=== PATIENT | male | born 1945 | race Caucasian/White ===

== ENCOUNTER 2016-07-14 09:08 | Outpatient (CLI) | payer MEDICARE | END 2016-07-14 09:09 | disposition home or self-care (01) | DX: E78.00 Pure hypercholesterolemia, unspecified (principal); I95.9 Hypotension, unspecified ==

== ENCOUNTER 2016-07-18 08:00 | Outpatient (CLI) | payer MEDICARE | END 2016-07-18 08:01 | disposition home or self-care (01) | DX: I95.9 Hypotension, unspecified (principal) ==

== ENCOUNTER 2016-08-17 13:46 | Outpatient (CLI) | payer MEDICARE | END 2016-08-17 13:47 | disposition home or self-care (01) | DX: R03.0 Elevated blood-pressure reading, without diagnosis of hypertension (principal) ==

== ENCOUNTER → 2016-11-23 | Outpatient (CLI) | payer MEDICARE ==
[2016-11-23 17:58] LABS: CALCIUM 8.9 mg/dL (8.5-10.3); CREATININE 1.2 mg/dL (0.6-1.2); POTASSIUM 4.3 mmol/L (3.5-5.0)
== END ==
LOC: LAB.F 08:00
PROVIDERS: ATTEND Internal Medicine
DX: G90.9 Disorder of the autonomic nervous system, unspecified (principal)
CPT/HCPCS: 36415; 80048

== ENCOUNTER 2016-12-01 10:31 | Outpatient (CLI) | payer MEDICARE ==
[2016-12-01 18:35] LABS: BASOPHILS % (AUTO) 0.5 %; EOSINOPHILS # (AUTO) 0.1 10^3/uL (0.0-0.7); HGB - HEMOGLOBIN 11.5 g/dL (14.0-18.0); LYMPHOCYTES # (AUTO) 0.6 10^3/uL (1.5-3.5); MEAN CORPUSCULAR HEMOGLOBIN 33.2 pg (27.0-31.0); MEAN CORPUSCULAR HGB CONC 34.9 g/dL (32.0-36.0); MEAN CORPUSCULAR VOLUME 95.2 fL (80.0-94.0); MEAN PLATELET VOLUME 10.2 fL (7.4-11.4); MONOCYTES # (AUTO) 0.4 10^3/uL (0.0-1.0); MONOCYTES % (AUTO) 6.6 %; NEUTROPHILS # (AUTO) 5.1 10^3/uL (1.5-6.6); NEUTROPHILS % (AUTO) 81.9 %; NUCLEATED RED BLOOD CELLS AUTO 0.1 /100WBC; RED BLOOD COUNT 3.47 10^6/uL (4.70-6.10); RED CELL DISTRIBUTION WIDTH 17.4 % (12.0-15.0); UNCORRECTED WHITE BLOOD COUNT 6.2 x10^3/uL; WHITE BLOOD COUNT 6.2 x10^3/uL (4.8-10.8)
== END 2016-12-01 10:32 | disposition home or self-care (01) ==
LOC: LAB.F 10:31
PROVIDERS: ATTEND Internal Medicine
DX: M10.071 Idiopathic gout, right ankle and foot (principal)
CPT/HCPCS: 36415; 84550; 85025

== ENCOUNTER 2016-12-20 15:01 | Outpatient (CLI) | payer MEDICARE ==
[2016-12-20 15:51] LABS: ALBUMIN/GLOBULIN RATIO 1.5 (1.0-2.2); BILIRUBIN,TOTAL 0.7 mg/dL (0.2-1.0); CALCIUM 8.3 mg/dL (8.5-10.3); CREATININE 1.1 mg/dL (0.6-1.2); POTASSIUM 4.3 mmol/L (3.5-5.0); TOTAL PROTEIN 6.1 g/dL (6.7-8.2)
== END 2016-12-20 15:02 | disposition home or self-care (01) ==
LOC: LAB 15:01
PROVIDERS: ATTEND Physician Assistant
DX: C23 Malignant neoplasm of gallbladder (principal)
CPT/HCPCS: 36415; 80053

== ENCOUNTER 2016-12-30 14:14 | Outpatient (CLI) | payer MEDICARE | END 2016-12-30 14:15 | disposition home or self-care (01) | LOC: LAB 14:14 | PROVIDERS: ATTEND Internal Medicine | DX: I95.9 Hypotension, unspecified (principal); G90.9 Disorder of the autonomic nervous system, unspecified ==

== ENCOUNTER 2017-01-11 07:44 | Outpatient (CLI) | payer MEDICARE ==
[2017-01-11] MEDS ORDERED: IOPAMIDOL-300 100 ML VIAL ONE (08:06)
[2017-01-11] MEDS ORDERED: IOPAMIDOL-300 50 ML VIAL ONE (08:06)
[2017-01-11] MEDS ORDERED: IOPAMIDOL-300 50 ML VIAL PO ONE (09:30)
[2017-01-11] MEDS ORDERED: IOPAMIDOL-300 100 ML VIAL IVP ONE (09:31)
--- NOTE | 2017-01-11 11:37 | CT Report ---
CT CHEST WITH CONTRAST: 01/11/2017 CLINICAL INDICATION: Gallbladder carcinoma. TECHNIQUE: Axial CT images of the chest were obtained with 100 mL Isovue-300 intravenously. In accordance with CT protocol optimization, one or more of the following dose reduction techniques were utilized for this exam: automated exposure control, adjustment of mA and/or KV based on patient size, or use of iterative reconstructive technique. COMPARISON: 08/25/2015 FINDINGS: The heart and great vessels demonstrate atherosclerotic calcifications. No hilar or mediastinal lymphadenopathy is present. No pulmonary nodule or mass lesion is appreciated. No effusion or pneumothorax is present. There are multiple small filling defects in segmental and subsegmental right lower lobe pulmonary arteries, compatible with pulmonary emboli. Osseous structures demonstrate degenerative changes. IMPRESSION: NO EVIDENCE OF METASTATIC DISEASE. INCIDENTAL FINDING OF RIGHT LOWER LOBE PULMONARY EMBOLI. CRITICAL RESULT: RESULTS CALLED TO DR. MOTA ON 01/11/2017 AT 11:20 P.M. JOB #: [id number] EXT JOB #: [id number] [facility]
--- NOTE | 2017-01-11 11:40 | CT Report ---
CT ABDOMEN AND PELVIS WITH CONTRAST: 01/11/2017 CLINICAL INDICATION: Followup gallbladder carcinoma. COMPARISON: 08/05/2013 TECHNIQUE: Axial CT images of the abdomen and pelvis were obtained with 100 mL Isovue-300 intravenou sly as well as oral contrast. In accordance with CT protocol optimization, one or more of the following dose reduction techniques w ere utilized for this exam: automated exposure control, adjustment of mA and/or KV based on patient size, or use of iterative reconstructive technique. Please also refer to chest CT of the same day for further findings. FINDINGS: Abdomen: The patient is status post cholecystectomy. Pneumobilia is present. The liver appears oth erwise unremarkable. The spleen, pancreas, and adrenal glands are unremarkable. The kidneys demonst rate multiple bilateral calculi, without significant interval change. No hydronephrosis or hydrouret er is seen. No bowel dilatation, free gas, or free fluid is present. No abdominal adenopathy is see n. Pelvis: Diverticulosis is present, without CT evidence of diverticulitis. No pelvic adenopathy or f ree fluid is present. Vascular phleboliths are present. Osseous structures demonstrate degenerative changes. IMPRESSION: POSTOPERATIVE CHANGES OF CHOLECYSTECTOMY, WITH PNEUMOBILIA. DIVERTICULOSIS, WITHOUT CT EVIDENCE OF DIVERTICULITIS. NO EVIDENCE OF METASTATIC DISEASE. JOB #: [id number] EXT JOB #:[id number]
== END 2017-01-11 07:45 | disposition home or self-care (01) ==
LOC: DI 07:44
PROVIDERS: ATTEND Internal Medicine
DX: C23 Malignant neoplasm of gallbladder (principal); K57.90 Diverticulosis of intestine, part unspecified, without perforation or abscess without bleeding; Z90.49 Acquired absence of other specified parts of digestive tract
CPT/HCPCS: 71260; 74177; Q9967

== ENCOUNTER 2017-01-11 11:47 | Inpatient (IN) | payer MEDICARE ==
[2017-01-11 12:27] LABS: BASOPHILS % (AUTO) 0.7 %; EOSINOPHILS % (AUTO) 0.9 %; HCT - HEMATOCRIT 28.1 % (42.0-52.0); HGB - HEMOGLOBIN 10.2 g/dL (14.0-18.0); LYMPHOCYTES # (AUTO) 0.8 10^3/uL (1.5-3.5); LYMPHOCYTES % (AUTO) 19.8 %; MEAN CORPUSCULAR HGB CONC 36.4 g/dL (32.0-36.0); MEAN CORPUSCULAR VOLUME 101.8 fL (80.0-94.0); MEAN PLATELET VOLUME 9.4 fL (7.4-11.4); MONOCYTES # (AUTO) 0.3 10^3/uL (0.0-1.0); MONOCYTES % (AUTO) 8.2 %; NEUTROPHILS # (AUTO) 2.8 10^3/uL (1.5-6.6); NEUTROPHILS % (AUTO) 70.4 %; NUCLEATED RED BLOOD CELLS AUTO 0.1 /100WBC; RED BLOOD COUNT 2.76 10^6/uL (4.70-6.10)
[2017-01-11 12:35] LABS: INR 1.1 (0.8-1.2); PT - PROTHROMBIN TIME 12.7 secs (9.9-12.6)
[2017-01-11 12:40] LABS: ALBUMIN/GLOBULIN RATIO 1.7 (1.0-2.2); BILIRUBIN,TOTAL 1.1 mg/dL (0.2-1.0); CALCIUM 8.7 mg/dL (8.5-10.3); CREATININE 1.2 mg/dL (0.6-1.2); POTASSIUM 4.1 mmol/L (3.5-5.0); TOTAL PROTEIN 5.9 g/dL (6.7-8.2)
[2017-01-11] MEDS ORDERED: ENOXAPARIN 80 MG/0.8 ML SYRINGE SUBQ STA (12:40)
[2017-01-11 12:42] LABS: PARTIAL THROMBOPLASTIN TIME 26.4 secs (24.9-33.3)
--- NOTE | 2017-01-11 12:46 | ED Physician Documentation ---
History of Present Illness - Stated complaint Stated Complaint: SOA - Chief complaint Chief Complaint: Resp - History obtained from History obtained from: Patient - Additonal information Additional information: 71 yo male under tx for gallbladder CA. Had surveillance scans today showing RLL PE. No acute dyspnea, "I've been short of breath for 10 years." Has been dealing with low blood pressures over the last few months. No H/O ulcers or bleeding issues. Review of Systems Ten Systems: 10 systems reviewed and negative Constitutional: reports: Reviewed and negative Ears: reports: Reviewed and negative Nose: reports: Reviewed and negative Throat: reports: Reviewed and negative Cardiac: reports: Reviewed and negative PD PAST MEDICAL HISTORY - Past Medical History Cardiovascular: High cholesterol, Coronary artery disease, Angina Respiratory: Shortness of breath Endocrine/Autoimmune: HyPOthyroidism GI: Cholelithiasis, Other : Kidney stones HEENT: None Psych: None Musculoskeletal: Gout Derm: None Other Past Medical History: Cancer to the gall bladder. - Past Surgical History Past Surgical History: Yes General: Appendectomy Cardiovascular: Coronary stent HEENT: Cataracts, Tonsil/Adenoidectomy - Present Medications Home Medications: Ambulatory Orders Medication Instructions Recorded Confirmed Lansoprazole 30 mg PO DAILY 08/05/13 08/25/16 Hyalur AC/Chond Sul/Colg II/Aa 100 mg PO BID 05/08/14 08/25/16 [Hyaluronic Acid 40 mg Capsule] Aspirin Chewable [St Patel 81 mg PO DAILY tablet 03/25/16 08/25/16 Aspirin] Levothyroxine [Synthroid] 25 mcg PO QDAC tablet 03/25/16 08/25/16 Atorvastatin [Lipitor] 80 mg PO DAILY 08/25/16 08/25/16 Cholecalciferol (Vitamin D3) 1 tab ORAL DAILY 08/25/16 08/25/16 [Vitamin D3] - Allergies Allergies/Adverse Reactions: Allergies Allergy/AdvReac Type Severity Reaction Status Date / Time No Known Drug Allergies Allergy Verified 01/11/17 11:54 - Social History Does the pt smoke?: No Smoking Status: Never smoker Does the pt drink ETOH?: Yes Does the pt have substance abuse?: No - Family History Family history: reports: Non contributory - Immunizations Immunizations are current?: Yes - POLST Patient has POLST: No PD ED PE NORMAL - Vitals Vital signs reviewed: Yes - General General: Alert and oriented X 3, No acute distress - HEENT HEENT: PERRL, EOMI - Neck Neck: Supple, no meningeal sign, No bony TTP - Cardiac Cardiac: RRR, No murmur - Respiratory Respiratory: No respiratory distress, Clear bilaterally - Abdomen Abdomen: Normal bowel sounds, Soft, Non tender - Back Back: No CVA TTP, No spinal TTP - Derm Derm: Normal color, Warm and dry - Extremities Extremities: No deformity, No edema, No calf tenderness / cord - Neuro Neuro: Alert and oriented X 3, Normal speech - Psych Psych: Normal mood, Normal affect Results - Vitals Vitals: Vital Signs - 24 hr 01/11/17 01/11/17 11:51 13:05 Temperature 36.5 C 36.9 C Heart Rate 59 L 61 Respiratory 20 16 Rate Blood Pressure 102/58 L 159/81 H O2 Saturation 100 100 Oxygen O2 Source Room air - Labs Labs: Laboratory Tests 01/11/17 01/11/17 01/11/17 12:21 12:21 12:21 WBC 4.0 L RBC 2.76 L Hgb 10.2 L Hct 28.1 L MCV 101.8 H MCH 37.0 H MCHC 36.4 H RDW 20.0 H Plt Count 149 MPV 9.4 Neut # 2.8 Lymph # 0.8 L [place] # 0.3 Eos # 0.0 Baso # 0.0 Absolute Nucleated RBC 0.00 Nucleated RBC % 0.1 PT 12.7 H INR 1.1 APTT 26.4 Sodium 137 Potassium 4.1 Chloride 107 Carbon Dioxide 23 Anion Gap 7.0 BUN 24 H Creatinine 1.2 Estimated GFR (MDRD) 60 L Glucose 149 H Calcium 8.7 Total Bilirubin 1.1 H AST 29 ALT 21 Alkaline Phosphatase 42 Troponin I Total Protein 5.9 L Albumin 3.7 Globulin 2.2 Albumin/Globulin Ratio 1.7 Lipase 28 01/11/17 12:21 WBC RBC Hgb Hct MCV MCH MCHC RDW Plt Count MPV Neut # Lymph # [place] # Eos # Baso # Absolute Nucleated RBC Nucleated RBC % PT INR APTT Sodium Potassium Chloride Carbon Dioxide Anion Gap BUN Creatinine Estimated GFR (MDRD) Glucose Calcium Total Bilirubin AST ALT Alkaline Phosphatase Troponin I < 0.04 Total Protein Albumin Globulin Albumin/Globulin Ratio Lipase PD MEDICAL DECISION MAKING - ED course ED course: 71-year-old presents with imaging done as an outpatient showing right lower lobe pulmonary embolism. He has active cancer and his PE severity index score is 110 which advises admission. Spoke with Dr. Woody for admission at 1:10 PM. Departure - Departure Disposition: ED Place in Observation Clinical Impression: Pulmonary embolism Qualifiers: Pulmonary embolism type: other Chronicity: acute Acute cor pulmonale presence: without acute cor pulmonale Qualified Code(s): I26.99 - Other pulmonary embolism without acute cor pulmonale Condition: Stable
[2017-01-11] MEDS ORDERED: ENOXAPARIN 80 MG/0.8 ML SYRINGE SUBQ ONE (12:47)
[2017-01-11] MEDS ORDERED: ONDANSETRON 4 MG/2 ML VIAL IVP PRN (14:06)
[2017-01-11] MEDS ORDERED: ZOLPIDEM 5 MG TABLET PO PRN (14:06)
[2017-01-11] MEDS ORDERED: ACETAMINOPHEN 325 MG TABLET PO PRN (14:06)
[2017-01-11] MEDS ORDERED: SODIUM CHLORIDE FLUSH 0.9% 10 ML SYRINGE IVP PRN (14:06)
--- NOTE | 2017-01-11 14:15 | HISTORY & PHYSICAL EXAMINATION ---
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 Patient report he had surveillance CT scans with contrast today, which found he had PE at his RLL. Patient report he has been "shortness of breathing for over 10 years." Patient denies acute dyspnea, chest pain, anxiety, cough. Patient denies any acute symptoms. Patient report he is current on chemotherapy for gallbladder cancer, two week on one week off. He report he had twice surgery to remove his gallbladder cancer on last year March and this year July. 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 His SBP can be down to 80 when he stand up and with some dizziness. CT of abdomen reveals unremarkable. Lab test reveal slight lower number WBC at 4 , HGB 10.2, HCT 28.1, BUN 24, creatinine 1.2. pt is currently on chemotherapy. Patient's vital is temperature 36.5, HR 58, BP 162/77, HR 56, 100% SO2 on room air, RR 16. History - Past Medical History Cardiovascular: reports: High cholesterol, Coronary artery disease, Angina Respiratory: reports: Shortness of breath Endocrine/Autoimmune: reports: HyPOthyroidism GI: reports: Cholelithiasis, Other : reports: Kidney stones HEENT: reports: None Psych: reports: None Musculoskeletal: reports: Gout Derm: reports: None MRSA Hx?: No Other Past Medical History: Cancer to the gall bladder. - Past Surgical History General: reports: Appendectomy Cardiovascular: reports: Coronary stent HEENT: reports: Cataracts, Tonsil/Adenoidectomy - Family & Social History Family History: Mother: (Mom from CLL, father from Pneumonia) , Father: Family History Comment/Other: patient [place] . he had 2 children, all are healthy. 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 Living arrangement: At home Living Situation: With spouse/s.o. - Substance History Use: Uses substance without health or social issues: NONE Abuse: Recurrent use of substance despite neg consequences: NONE Dependence: Experiences withdrawal or developed tolerances: NONE - POLST Patient has POLST: No POLST Status: Full Code Meds/Allgy - Home Medications Home Medications: Ambulatory Orders Medication Instructions Recorded Confirmed Lansoprazole 30 mg PO DAILY 08/05/13 01/11/17 Aspirin Chewable [St Patel 81 mg PO DAILY tablet 03/25/16 01/11/17 Aspirin] Levothyroxine [Synthroid] 25 mcg PO QDAC tablet 03/25/16 01/11/17 Atorvastatin [Lipitor] 80 mg PO DAILY 08/25/16 01/11/17 Cholecalciferol (Vitamin D3) 1,000 tab ORAL DAILY 08/25/16 01/11/17 [Vitamin D3] Calcium Carbonate [Tums (Calcium 500 mg PO DAILY 01/11/17 01/11/17 Carbonate 500mg)] Capecitabine [Capecitabine] 1,500 mg PO 0800,1700 01/11/17 01/11/17 Fludrocortisone [Florinef] 0.2 mg PO BID 01/11/17 01/11/17 - Allergies Allergies/Adverse Reactions: Allergies Allergy/AdvReac Type Severity Reaction Status Date / Time No Known Drug Allergies Allergy Verified 01/11/17 11:54 Review of Systems - Constitutional Constitutional: denies: Fatigue, Fever, Chills, Malaise, Weakness, Poor appetite , Diaphoresis, Night sweats, Weight gain, Weight loss - Eyes Eyes: denies: Pain, Irritation, Blurred vision, Spots in vision, Field loss, Vision loss - Ears, Nose & Throat Ears, Nose & Throat: denies: Ear pain, Hearing loss, Hearing aids, Tinnitus, Vertigo, Nasal pain, Nasal discharge, Nosebleeds, Nasal congestion, Sore throat , Mouth lesions, Bleeding gums - Cardiovascular Cariovascular: denies: Irregular heart rate, Palpitations, Chest pain, Edema, Lightheadedness, Syncope, Exertional dyspnea - Respiratory Respiratory: denies: Cough, Sputum production, Wheezing, Snoring, Hemoptysis, Orthopnea, Apnea - Gastrointestinal Gastrointestinal: denies: Abdominal pain, Abdominal distention, Constipation, Diarrhea, Change in bowel habits, Rectal bleeding, Black stools, Bloody stools, Nausea, Vomiting, Coffee grounds emesis, Poor appetite - Genitourinary Genitourinary: denies: Dysuria, Frequency, Urgency, Hematuria, Incontinence, Flank pain, Nocturia - Musculoskeletal Musculoskeletal: denies: Muscle pain, Back pain, Muscle aches, Stiffness, Limited range of motion, Muscle weakness, Gout, Joint pain - Integumentary Integumentary: denies: Rash, Pruritis, Lesions, Dryness, Acne, Pigment changes - Neurological Neurological: denies: General weakness, Focal weakness, Headache, Dizziness, Numbness, Memory problems, Abnormal gait, Seizures, Incoordination, Slurred speech - Psychiatric Psychiatric: denies: Depression, Anxiety, Suicidal, Delusions, Hallucinations, Homicidal - Endocrine Endocrine: denies: Polyuria, Polydypsia, Polyphagia, Intolerance to cold - Hematologic/Lymphatic Hematologic/Lymphatic: denies: Anemia, Bruising, Petechiae, Blood clots, Lymphadenopathy, Bleeding tendencies, Recurrent infections Exam - Vital Signs Reviewed Vital Signs: Yes Vital Signs: Vital Signs x48h Temp Pulse Resp BP Pulse Ox 01/11/17 13:05 36.9 C 61 16 159/81 H 100 01/11/17 11:51 36.5 C 59 L 20 102/58 L 100 - Physical Exam General Appearance: positive: No acute distress, Alert. negative: Lethargic Eyes Bilateral: positive: Normal inspection, PERRL, No lid inflammation, Conjunctivae nml, No scleral icterus ENT: positive: ENT inspection nml, Pharynx nml, No signs of dehydration. negative: Purulent nasal drainage, Pharyngeal erythema, Oral lesions Neck: positive: Nml inspection, Thyroid nml, No JVD, Trachea midline. negative : Thyromegaly, Lymphadenopathy (R), Lymphadenopathy (L), Stiff neck, Swelling/ bruising, Tracheal deviation Respiratory: positive: Chest non-tender, No respiratory distress, Other (left lung sound is normal, the sound of right lower lung is diminished). negative: Wheezes, Rales, Rhonchi Cardiovascular: positive: Regular rate & rhythm, No murmur, No gallop. negative : Irregularly irregular, Extrasystoles, Tachycardia, Bradycardia, Systolic murmur, Diastolic murmur Peripheral Pulses: positive: 2+ Abdomen: positive: Non-tender, No organomegaly, Nml bowel sounds, No distention. negative: Tenderness, Guarding, Rebound Back: positive: Nml inspection. negative: CVA tenderness (R), CVA tenderness (L ) Skin: positive: Color nml, No rash, Warm, Dry. negative: Cyanosis, Diaphoresis , Skin rash Extremities: positive: Non-tender, Full ROM, Nml appearance. negative: Pedal edema, Calf tenderness, Berny's sign/cords Neurologic/Psychiatric: positive: Oriented x3, Motor nml, Sensation nml, Mood/ affect nml. negative: Sensory loss, Facial droop, Slurred/abnml speech, Depressed mood/affect Conclusion/Plan - Problem List (1) Pulmonary embolism Conclusion/Plan: CT with contrast, reveals pt had PE at RLL, with decreased lung sound at RLL compared with left lung at physical examination. Pt is current on chemotherapy for his gallbladder caner, the risk of blood clots is increased. Plan: treat with Lovenox 1 mg/kg Bid now, may switch to Xarelto or Coumadin, will discuss at tomorrow meeting. daily check PT/INR monitor tele, vital Qualifiers: Pulmonary embolism type: other Chronicity: acute Acute cor pulmonale presence: without acute cor pulmonale Qualified Code(s): I26.99 - Other pulmonary embolism without acute cor pulmonale (2) Gallbladder cancer, carcinoma Conclusion/Plan: pt is current on chemotherapy, will resume home meds after pharmacy reconciliation of the meds (3) Hypotension Conclusion/Plan: pt with history of hypotension, Now pt has slight elevated BP, will check orthostatic BP. will hold pt's home meds, Fludrocortisone (4) Hypothyroid Conclusion/Plan: stable, resume home meds will check TSH (5) Hyperlipidemia Conclusion/Plan: stable, will resume home meds, Atorvastatin (6) Hx of coronary artery disease Conclusion/Plan: pt denies chest pain, SOB, any other cardiac distress. will resume pt's home meds pt will be on tele, vital monitor (7) DVT prophylaxis Conclusion/Plan: SCD now, pt is already on Lovenox BID for PE - Lab Results Fish Bones: 01/12/17 05:18 01/12/17 05:18 Issues/Core Measures - Anticipated LOS Anticipated Stay Length: 2 or more midnights (acute PE may request two or more midnight)
[2017-01-11] MEDS ORDERED: cloNIDine 0.1 MG TABLET PO PRN (16:04)
[2017-01-11] MEDS: CAPECITABINE 500 MG PO SCH (18:09)
[2017-01-11] MEDS ORDERED: ATORVASTATIN 40 MG TABLET PO SCH (21:00)
[2017-01-11] MEDS: ENOXAPARIN 80 MG/0.8 ML SYRINGE SUBQ SCH (21:43)
[2017-01-11] MEDS: FAMOTIDINE 20 MG TABLET PO SCH (21:43)
[2017-01-11] MEDS: SODIUM CHLORIDE FLUSH 0.9% 10 ML SYRINGE IVP SCH (21:44)
[2017-01-12] MEDS: SODIUM CHLORIDE FLUSH 0.9% 10 ML SYRINGE IVP SCH (06:04)
[2017-01-12 06:16] LABS: ALBUMIN/GLOBULIN RATIO 1.8 (1.0-2.2); BILIRUBIN,TOTAL 1.1 mg/dL (0.2-1.0); CALCIUM 8.7 mg/dL (8.5-10.3); CREATININE 1.1 mg/dL (0.6-1.2); POTASSIUM 4.1 mmol/L (3.5-5.0); TOTAL PROTEIN 5.8 g/dL (6.7-8.2)
[2017-01-12 06:23] LABS: BASOPHILS % (AUTO) 0.6 %; EOSINOPHILS # (AUTO) 0.1 10^3/uL (0.0-0.7); EOSINOPHILS % (AUTO) 1.3 %; HCT - HEMATOCRIT 30.4 % (42.0-52.0); HGB - HEMOGLOBIN 10.8 g/dL (14.0-18.0); LYMPHOCYTES # (AUTO) 1.1 10^3/uL (1.5-3.5); LYMPHOCYTES % (AUTO) 23.4 %; MEAN CORPUSCULAR HEMOGLOBIN 36.4 pg (27.0-31.0); MEAN CORPUSCULAR HGB CONC 35.5 g/dL (32.0-36.0); MEAN CORPUSCULAR VOLUME 102.6 fL (80.0-94.0); MEAN PLATELET VOLUME 10.1 fL (7.4-11.4); MONOCYTES # (AUTO) 0.6 10^3/uL (0.0-1.0); NEUTROPHILS # (AUTO) 2.9 10^3/uL (1.5-6.6); NEUTROPHILS % (AUTO) 62.7 %; RED BLOOD COUNT 2.96 10^6/uL (4.70-6.10); RED CELL DISTRIBUTION WIDTH 19.1 % (12.0-15.0); UNCORRECTED WHITE BLOOD COUNT 4.6 x10^3/uL; WHITE BLOOD COUNT 4.6 x10^3/uL (4.8-10.8)
[2017-01-12 06:46] LABS: INR 1.2 (0.8-1.2); PT - PROTHROMBIN TIME 13.2 secs (9.9-12.6)
[2017-01-12] MEDS ORDERED: LEVOTHYROXINE 25 MCG TABLET PO SCH (07:00)
[2017-01-12] MEDS ORDERED: ASPIRIN CHEW 81 MG TABLET PO SCH (09:00)
[2017-01-12] MEDS ORDERED: POLYETHYLENE GLYCOL 3350 17 GM PACKET PO SCH (09:00)
[2017-01-12] MEDS ORDERED: CHOLECALCIFEROL 1,000 UNIT TABLET PO SCH (09:00)
[2017-01-12] MEDS ORDERED: FAMOTIDINE 20 MG TABLET PO SCH (09:00)
[2017-01-12] MEDS: FAMOTIDINE 20 MG TABLET PO SCH (10:13)
[2017-01-12] MEDS: ENOXAPARIN 80 MG/0.8 ML SYRINGE SUBQ SCH (10:13)
[2017-01-12 11:14] VITALS: BP 167/78
--- NOTE | 2017-01-12 11:23 | Discharge Plan ---
Discharge Plan Disposition: 01 Home, Self Care Condition: Stable Prescriptions: Rivaroxaban [Xarelto] 15 mg PO BID #42 tablet Diet: Regular Activity Restrictions: Activity as Tolerated Shower Restrictions: No Driving Restrictions: No Weight Bearing: Full Weight Additional Instructions or Follow Up instructions: May see PCP in one week, and follow up your oncologist appointment. Follow-Up Care: [facility] - Medical No Smoking: If you smoke, Please STOP! Call for help. Follow-up with: Juan F Johnson MD [Primary Care Provider] -
[2017-01-12] MEDS: CAPECITABINE 500 MG PO SCH (11:49)
--- NOTE | 2017-01-12 13:01 | DISCHARGE SUMMARY ---
Discharge Summary Admit Date: 01/11/17 Discharge Date: 01/12/17 Discharging Provider: CASTILLO Primary Care Provider: Juan F Garner Code Status: Attempt Resuscitation Condition at Discharge: Stable Discharge Disposition: 01 Home, Self Care Discharge Facility Name: home - DIAGNOSES Admission Diagnoses: (1) Pulmonary embolism (2) Gallbladder cancer, carcinoma (3) Hypotension (4) Hypothyroid (5) Hyperlipidemia (6) Hx of coronary artery disease Discharge Diagnoses with Status of Each Condition: (1) Pulmonary embolism pt agree to D/C home with Xarelto for him to pay the co-pay. Pt is discharged with Xarelto (2) Gallbladder cancer, carcinoma pt is on chemotherapy now, will followup and managed by his oncologist (3) Hypotension stable, (4) Hypothyroid stable, managed by PCP (5) Hyperlipidemia stable, (6) Hx of coronary artery disease stable, no acute events. 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 Patient report he had surveillance CT scans with contrast today, which found he had PE at his RLL. Patient report he has been "shortness of breathing for over 10 years." Patient denies acute dyspnea, chest pain, anxiety, cough. Patient denies any acute symptoms. Patient report he is current on chemotherapy for gallbladder cancer, two week on one week off. He report he had twice surgery to remove his gallbladder cancer on last year March and this year July. 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 His SBP can be down to 80 when he stand up and with some dizziness. CT of abdomen reveals unremarkable. Lab test reveal slight lower number WBC at 4 , HGB 10.2, HCT 28.1, BUN 24, creatinine 1.2. pt is currently on chemotherapy. Patient's vital is temperature 36.5, HR 58, BP 162/77, HR 56, 100% SO2 on room air, RR 16. - HOSPITAL COURSE Hospital Course: Pt was found to have PE at right lower lung in CT of chest with contrast. Pt is quickly recovered from shortness of breathing. Pt agreed to have Xarelto to D/C to home. Pt denies any other complaints at this time. - ALLERGIES Allergies/Adverse Reactions: Allergies Allergy/AdvReac Type Severity Reaction Status Date / Time No Known Drug Allergies Allergy Verified 01/11/17 11:54 - MEDICATIONS Home Medications: Ambulatory Orders Medication Instructions Recorded Confirmed Lansoprazole 30 mg PO DAILY 08/05/13 01/11/17 Aspirin Chewable [St Patel 81 mg PO DAILY tablet 03/25/16 01/11/17 Aspirin] Levothyroxine [Synthroid] 25 mcg PO QDAC tablet 03/25/16 01/11/17 Atorvastatin [Lipitor] 80 mg PO DAILY 08/25/16 01/11/17 Cholecalciferol (Vitamin D3) 1,000 tab ORAL DAILY 08/25/16 01/11/17 [Vitamin D3] Calcium Carbonate [Tums (Calcium 500 mg PO DAILY 01/11/17 01/11/17 Carbonate 500mg)] Capecitabine 1,500 mg PO 0800,1700 01/11/17 01/11/17 Fludrocortisone [Florinef] 0.2 mg PO BID 01/11/17 01/11/17 Rivaroxaban [Xarelto] 15 mg PO BID #42 tablet 01/12/17 - PHYSICAL EXAM AT DISCHARGE General Appearance: positive: No acute distress, Alert. negative: Lethargic Eyes Bilateral: positive: Normal inspection, PERRL, EOMI. negative: No lid inflammation, Conjunctivae nml, No scleral icterus ENT: positive: ENT inspection nml, Pharynx nml, No signs of dehydration. negative: Purulent nasal drainage, Pharyngeal erythema, Oral lesions Neck: positive: Nml inspection, Thyroid nml, No JVD, Trachea midline. negative : Thyromegaly, Lymphadenopathy (R), Lymphadenopathy (L), Stiff neck, Swelling/ bruising, Tracheal deviation Respiratory: positive: Chest non-tender, No respiratory distress, Breath sounds nml. negative: Wheezes, Rales, Rhonchi Cardiovascular: positive: Regular rate & rhythm, No murmur, No gallop, Irregularly irregular. negative: Extrasystoles, Tachycardia, Bradycardia, Systolic murmur, Diastolic murmur Peripheral Pulses: positive: 2+ Abdomen: positive: Non-tender, No organomegaly, Nml bowel sounds, No distention. negative: Tenderness, Guarding, Rebound Back: positive: Nml inspection. negative: CVA tenderness (R), CVA tenderness (L ) Skin: positive: Color nml, No rash, Warm, Dry. negative: Cyanosis, Diaphoresis , Skin rash, Embolic lesions Extremities: positive: Non-tender, Full ROM, Nml appearance. negative: Pedal edema, Calf tenderness, Berny's sign/cords Neurologic/Psychiatric: positive: Oriented x3, Motor nml, Sensation nml, Mood/ affect nml. negative: Sensory loss, Facial droop, Slurred/abnml speech, Depressed mood/affect - LABS Result Diagrams: 01/12/17 05:18 01/12/17 05:18 - FOLLOW UP Follow Up: pt was advised to follow up his PCP in one week, and follow up closely with his oncologist. Pt was advise, should the symptoms return or worsen, please call 911 or go to the nearest ER to seek help, patient is welcomed to our service.
== END 2017-01-12 12:22 | disposition home or self-care (01) | DRG 176 ==
LOC: ED 11:47 → MS2 14:06
PROVIDERS: ADMIT Nurse Practitioner Gerontology; ATTEND Nurse Practitioner Gerontology
DX: I26.99 Other pulmonary embolism without acute cor pulmonale (principal); C23 Malignant neoplasm of gallbladder; K57.90 Diverticulosis of intestine, part unspecified, without perforation or abscess without bleeding; E03.9 Hypothyroidism, unspecified; E78.5 Hyperlipidemia, unspecified; I25.119 Atherosclerotic heart disease of native coronary artery with unspecified angina pectoris; M10.9 Gout, unspecified; G90.9 Disorder of the autonomic nervous system, unspecified; I95.1 Orthostatic hypotension; E78.00 Pure hypercholesterolemia, unspecified; Z90.49 Acquired absence of other specified parts of digestive tract; Z79.899 Other long term (current) drug therapy; Z87.442 Personal history of urinary calculi; Z95.5 Presence of coronary angioplasty implant and graft; Z79.82 Long term (current) use of aspirin
CPT/HCPCS: 36415; 71260; 74177; 80053; 83690; 83735; 84443; 84484; 85025; 85610; 85730; 96372; 99283; 99285

== ENCOUNTER 2017-06-01 08:11 | Outpatient (CLI) | payer MEDICARE ==
[2017-06-01] MEDS ORDERED: IOPAMIDOL-300 100 ML VIAL ONE (08:31)
[2017-06-01] MEDS ORDERED: IOPAMIDOL-300 50 ML VIAL ONE (08:31)
[2017-06-01 08:41] LABS: CREATININE 1.1 mg/dL (0.6-1.2)
[2017-06-01] MEDS ORDERED: IOPAMIDOL-300 100 ML VIAL IVP ONE (10:21)
[2017-06-01] MEDS ORDERED: IOPAMIDOL-300 50 ML VIAL PO ONE (10:21)
--- NOTE | 2017-06-01 14:31 | CT Report ---
CT CHEST WITH CONTRAST: 06/01/2017 CLINICAL INDICATION: Gallbladder cancer followup. COMPARISON: 01/11/2017. TECHNIQUE: Axial CT images of the chest were obtained with 100 mL Isovue 300 intravenously FINDINGS: The heart and great vessels demonstrate atherosclerotic calcification. No hilar or mediastinal lymphadenopathy is present. The lungs demonstrate minimal dependent atelectasis. Previously seen right lower lobe pulmonary emboli have resolved. No effusion or pneumothorax is present. No suspicious pulmonary nodule or mass lesion is seen. Osseous structures demonstrate degenerative changes. IMPRESSION: RESOLUTION OF PREVIOUSLY SEEN PULMONARY EMBOLI. NO EVIDENCE OF METASTATIC DISEASE. In accordance with CT protocol optimization, one or more of the following dose reduction techniques were utilized for this exam: automated exposure control, adjustment of mA and/or KV based on patient size, or use of iterative reconstructive technique. TD: 06/01/2017 14:30
--- NOTE | 2017-06-01 14:34 | CT Report ---
CT OF THE ABDOMEN AND PELVIS WITH CONTRAST: 06/01/2017 CLINICAL INDICATION: Gallbladder cancer followup. TECHNIQUE: Axial CT images of the abdomen and pelvis were obtained with 100 mL Isovue 300 intravenously as well as oral contrast. COMPARISON: 01/11/2017. FINDINGS: ABDOMEN: Postoperative changes of cholecystectomy are stable. Pneumobilia is unchanged. No focal liver lesion is seen. The spleen, pancreas and adrenal glands are unremarkable. The kidneys again demonstrate nephrolithiasis without hydronephrosis or hydroureter. No bowel dilatation, free gas, or free fluid is present. No abdominal adenopathy is seen. PELVIS: The pelvic organs appear unremarkable. No pelvic adenopathy or free fluid is present. Osseous structures demonstrate degenerative changes. IMPRESSION: STABLE POSTOPERATIVE CHANGES. NO EVIDENCE OF METASTATIC DISEASE. STABLE NEPHROLITHIASIS. In accordance with CT protocol optimization, one or more of the following dose reduction techniques were utilized for this exam: automated exposure control, adjustment of mA and/or KV based on patient size, or use of iterative reconstructive technique. TD: 06/01/2017 14:33
== END 2017-06-01 08:12 | disposition home or self-care (01) ==
LOC: LAB 08:11
PROVIDERS: ATTEND Internal Medicine
DX: C23 Malignant neoplasm of gallbladder (principal); Z79.899 Other long term (current) drug therapy; N20.0 Calculus of kidney
CPT/HCPCS: 36415; 71260; 74177; 82565

== ENCOUNTER 2017-08-29 07:31 | Outpatient (CLI) | payer MEDICARE ==
[2017-08-29 11:57] LABS: BASOPHILS % (AUTO) 0.7 %; EOSINOPHILS # (AUTO) 0.3 10^3/uL (0.0-0.7); EOSINOPHILS % (AUTO) 5.1 %; HGB - HEMOGLOBIN 14.5 g/dL (14.0-18.0); LYMPHOCYTES # (AUTO) 0.9 10^3/uL (1.5-3.5); LYMPHOCYTES % (AUTO) 17.9 %; MEAN CORPUSCULAR HGB CONC 34.6 g/dL (32.0-36.0); MEAN CORPUSCULAR VOLUME 95.4 fL (80.0-94.0); MEAN PLATELET VOLUME 10.8 fL (7.4-11.4); MONOCYTES # (AUTO) 0.5 10^3/uL (0.0-1.0); NEUTROPHILS # (AUTO) 3.5 10^3/uL (1.5-6.6); NEUTROPHILS % (AUTO) 66.3 %; PLT - PLATELET COUNT 161 10^3/uL (130-450); RED BLOOD COUNT 4.41 10^6/uL (4.70-6.10); RED CELL DISTRIBUTION WIDTH 14.3 % (12.0-15.0); WHITE BLOOD COUNT 5.3 x10^3/uL (4.8-10.8)
== END 2017-08-29 07:32 | disposition home or self-care (01) ==
LOC: LAB.F 07:31
PROVIDERS: ATTEND Internal Medicine
DX: I95.1 Orthostatic hypotension (principal); E03.9 Hypothyroidism, unspecified; E78.00 Pure hypercholesterolemia, unspecified
CPT/HCPCS: 36415; 80053; 80061; 83721; 84443; 85025

== ENCOUNTER 2017-09-03 07:07 | Outpatient (CLI) | payer MEDICARE ==
[2017-09-03 12:14] LABS: ALBUMIN 3.9 g/dL (3.2-5.5); ALBUMIN/GLOBULIN RATIO 1.3 (1.0-2.2); ALKALINE PHOSPHATASE 49 IU/L (42-121); ALT ALANINE AMINOTRANSFERASE 27 IU/L (10-60); AST ASPARTATE AMINOTRANSFERASE 27 IU/L (10-42); BILIRUBIN,TOTAL 0.8 mg/dL (0.2-1.0); BUN - BLOOD UREA NITROGEN 18 mg/dL (6-20); CALCIUM 8.8 mg/dL (8.5-10.3); CARBON DIOXIDE - CO2 28 mmol/L (21-32); CHLORIDE 103 mmol/L (101-111); CHOL/HDL RATIO 1.9 (<5.0); CHOLESTEROL 142 mg/dL; CREATININE 1.1 mg/dL (0.6-1.2); GFR - MDRD 66 (>89); GLUCOSE 90 mg/dL (70-100); HDL CHOLESTEROL 76 mg/dL; LDL CHOLESTEROL,CALCULATED 50 mg/dL; LDL/HDL RATIO 0.7 (<3.6); SODIUM 138 mmol/L (135-145); TOTAL PROTEIN 6.8 g/dL (6.7-8.2); VLDL CHOLESTEROL 16 mg/dL
== END 2017-09-03 07:08 | disposition home or self-care (01) ==
LOC: LAB.F 07:07
PROVIDERS: ATTEND Internal Medicine
DX: I95.1 Orthostatic hypotension (principal); E03.9 Hypothyroidism, unspecified; E78.00 Pure hypercholesterolemia, unspecified
CPT/HCPCS: 36415; 80053; 80061; 83721; 84443

== ENCOUNTER 2017-10-10 10:20 | Emergency (ER) | payer MEDICARE ==
[2017-10-10 10:49] LABS: BASOPHILS # (AUTO) 0.2 10^3/uL (0.0-0.1); BASOPHILS % (AUTO) 1.1 %; EOSINOPHILS % (AUTO) 0.1 %; LYMPHOCYTES # (AUTO) 0.5 10^3/uL (1.5-3.5); LYMPHOCYTES % (AUTO) 3.2 %; MEAN CORPUSCULAR HEMOGLOBIN 33.1 pg (27.0-31.0); MEAN CORPUSCULAR HGB CONC 34.7 g/dL (32.0-36.0); MEAN CORPUSCULAR VOLUME 95.4 fL (80.0-94.0); MEAN PLATELET VOLUME 10.1 fL (7.4-11.4); MONOCYTES # (AUTO) 1.5 10^3/uL (0.0-1.0); NEUTROPHILS # (AUTO) 12.8 10^3/uL (1.5-6.6); NEUTROPHILS % (AUTO) 85.6 %; PLT - PLATELET COUNT 179 10^3/uL (130-450); RED BLOOD COUNT 4.25 10^6/uL (4.70-6.10); RED CELL DISTRIBUTION WIDTH 13.6 % (12.0-15.0); WHITE BLOOD COUNT 14.9 x10^3/uL (4.8-10.8)
[2017-10-10 11:19] LABS: ALBUMIN 4.1 g/dL (3.2-5.5); ALBUMIN/GLOBULIN RATIO 1.4 (1.0-2.2); BILIRUBIN,TOTAL 0.6 mg/dL (0.2-1.0); CREATININE 1.9 mg/dL (0.6-1.2); TOTAL PROTEIN 7.1 g/dL (6.7-8.2)
[2017-10-10] MEDS ORDERED: HYDROmorphone 1 MG/ML CARPUJECT IVP STA ×3 (11:41→18:04)
[2017-10-10] MEDS ORDERED: ONDANSETRON 4 MG/2 ML VIAL IVP STA (11:41)
--- NOTE | 2017-10-10 11:44 | ED Physician Documentation ---
PD HPI ABD PAIN - Stated complaint Stated Complaint: VOMITING - Chief complaint Chief Complaint: Abd Pain - History obtained from History obtained from: Patient, Family - History of Present Illness Timing - onset: How many days ago (5) Timing - duration: Days (5) Timing - details: Gradual onset, Still present Quality: Cramping, Pain Location: Suprapubic Improved by: Laying still, Vomiting Worsened by: Moving, Position, Palpation Associated symptoms: Vomiting, Constipation. No: Fever, Nausea Similar symptoms before: Has not had sx before Recently seen: Not recently seen - Additional information Additional information: 72-year-old male who has finished surgery and chemotherapy for cholangiocarcinoma has developed acute abdominal pain vomiting abdominal distention and lack of flatus or bowel movement. He has had symptoms for about 5 days and they have not resolved. Review of Systems Constitutional: denies: Fever Eyes: denies: Decreased vision Ears: denies: Ear pain Nose: denies: Congestion Throat: denies: Sore throat Cardiac: denies: Chest pain / pressure, Palpitations Respiratory: denies: Dyspnea, Cough GI: reports: Abdominal Pain, Vomiting, Constipation. denies: Nausea : denies: Dysuria, Frequency Skin: denies: Rash Musculoskeletal: denies: Neck pain, Back pain, Extremity pain Neurologic: denies: Generalized weakness, Focal weakness PD PAST MEDICAL HISTORY - Past Medical History Past Medical History: Yes Cardiovascular: High cholesterol, Coronary artery disease, Angina Respiratory: Shortness of breath Endocrine/Autoimmune: HyPOthyroidism GI: GERD, Cholelithiasis, Other : Kidney stones HEENT: None Psych: None Musculoskeletal: Gout Derm: None Other Past Medical History: cholangiocarnioma, autonomic orthostatic hypotension - Past Surgical History Past Surgical History: Yes General: Cholecystectomy, Appendectomy Cardiovascular: Coronary stent HEENT: Cataracts, Tonsil/Adenoidectomy - Present Medications Home Medications: Ambulatory Orders Medication Instructions Recorded Confirmed Lansoprazole 30 mg PO DAILY 08/05/13 10/02/17 Aspirin Chewable [St Patel 81 mg PO DAILY tablet 03/25/16 10/02/17 Aspirin] Levothyroxine [Synthroid] 25 mcg PO QDAC tablet 03/25/16 10/02/17 Atorvastatin [Lipitor] 80 mg PO DAILY 08/25/16 10/02/17 Cholecalciferol (Vitamin D3) 1,000 tab ORAL DAILY 08/25/16 10/02/17 [Vitamin D3] Fludrocortisone [Florinef] 0.2 mg PO BID 01/11/17 10/02/17 Hyluronic Acid 100 mg ORAL DAILY 10/10/17 Sodium Chloride [Salt Tab] 1 gm PO DAILY 10/10/17 10/10/17 - Allergies Allergies/Adverse Reactions: Allergies Allergy/AdvReac Type Severity Reaction Status Date / Time No Known Drug Allergies Allergy Verified 10/10/17 10:35 - Social History Does the pt smoke?: No Smoking Status: Never smoker Does the pt drink ETOH?: Yes Does the pt have substance abuse?: No - Immunizations Immunizations are current?: Yes - POLST Patient has POLST: No POLST Status: Full Code PD ED PE NORMAL - Vitals Vital signs reviewed: Yes (normal ) - General General: Alert and oriented X 3, No acute distress, Well developed/nourished, Other (looks like he might vomit at any minute ) - HEENT HEENT: Atraumatic, PERRL, EOMI - Neck Neck: Supple, no meningeal sign - Cardiac Cardiac: RRR, No murmur - Respiratory Respiratory: No respiratory distress, Clear bilaterally - Abdomen Abdomen: Other (distended and tender with reduced bowel sounds ) - Back Back: No CVA TTP, No spinal TTP - Derm Derm: Normal color, Warm and dry, No rash - Extremities Extremities: No deformity, No calf tenderness / cord - Neuro Neuro: Alert and oriented X 3, No motor deficit, No sensory deficit, Normal speech Eye Opening: Spontaneous Motor: Obeys Commands Verbal: Oriented GCS Score: 15 - Psych Psych: Normal mood, Normal affect Results - Vitals Vitals: Vital Signs - 24 hr 10/10/17 10/10/17 10/10/17 10:31 12:46 14:36 Temperature 36.3 C L Heart Rate 82 70 68 Respiratory 18 18 18 Rate Blood Pressure 120/77 141/81 H 142/83 H O2 Saturation 95 98 94 10/10/17 15:30 Temperature Heart Rate 70 Respiratory 18 Rate Blood Pressure 136/82 H O2 Saturation 97 Oxygen O2 Source Room air - Labs Labs: Laboratory Tests 10/10/17 10/10/17 10:45 10:45 WBC 14.9 H RBC 4.25 L Hgb 14.0 Hct 40.5 L MCV 95.4 H MCH 33.1 H MCHC 34.7 RDW 13.6 Plt Count 179 MPV 10.1 Neut # (Auto) 12.8 H Lymph # (Auto) 0.5 L Morrison # (Auto) 1.5 H Eos # (Auto) 0.0 Baso # (Auto) 0.2 H Absolute Nucleated RBC 0.00 Nucleated RBC % 0.0 Sodium 133 L Potassium 2.9 L Chloride 87 L Carbon Dioxide 33 H Anion Gap 13.0 BUN 50 H Creatinine 1.9 H Estimated GFR (MDRD) 35 L Glucose 135 H Calcium 9.0 Total Bilirubin 0.6 AST 51 H ALT 50 Alkaline Phosphatase 62 Total Protein 7.1 Albumin 4.1 Globulin 3.0 Albumin/Globulin Ratio 1.4 Lipase 566 H - Rads (name of study) CT abd/pel with Radiology: Prelim report reviewed (Impression: 1. High-grade obstruction at the level of the transverse portion of the duodenum adjacent to the uncinate process of the pancreas. Enteric tube tip is in the proximal stomach just beyond the gastroesophageal junction, with sidehole in the distal esophagus. 2. At the site of transition in the transverse portion of the duodenum, the duodenal wall and adjacent uncinate process of the pancreas are indistinct with mild adjacent fat stranding. This may be due to focal acute pancreatitis. However, an infiltrative mass cannot be completely excluded. Further evaluation with pancreatic protocol MRI or CT may be helpful for further evaluation after resolution of the acute process. 3 Pneumobilia, as seen on prior exams, likely related to prior cholecystectomy and biliary surgery. No intrahepatic biliary dilation there is small mild dilation of the distal common bile duct, increased compared to prior exam. 4 Multiple nonobstructing calyceal calculi of the bilateral kidneys as seen on prior exam.5 Moderate diverticulosis in the descending and sigmoid colon without evidence of acute diverticulitis. 6 Well-defined lucent lesions of the L5 vertebral body, which is increased in size compared to 10/03/2017. Although this could represent a Schmorl's node, the increase in size raises the possibility of more aggressive lytic lesion. No other bone lesion is identified. 2. At the site of transition in the transverse portion of the duodenum, the duodenal wall and adjacent uncinate process of the pancreas are indistinct with mild adjacent fat stranding. This may be due to focal acute pancreatitis. However, an infiltrative mass cannot be completely excluded. Further evaluation with pancreatic protocol MRI or CT may be helpful for further evaluation after resolution of the acute process. 3 Pneumobilia, as seen on prior exams, likely related to prior cholecystectomy and biliary surgery. No intrahepatic biliary dilation there is small mild dilation of the distal common bile duct, increased compared to prior exam. 4 Multiple nonobstructing calyceal calculi of the bilateral kidneys as seen on prior exam.5 Moderate diverticulosis in the descending and sigmoid colon without evidence of acute diverticulitis. 6 Well- defined lucent lesions of the L5 vertebral body, which is increased in size compared to 10/03/2017. Although this could represent a Schmorl's node, the increase in size raises the possibility of more aggressive lytic lesion. No other bone lesion is identified.), EMP read indepedently, See rad report PD MEDICAL DECISION MAKING - ED course Complexity details: reviewed old records, reviewed results, re-evaluated patient , considered differential, d/w patient, d/w family ED course: 72-year-old male undergoing treatment for cholangiole carcinoma has developed in a obstruction of his intestinal tract. It appears to be at the level of the duodenum over the pancreas. He has acute pancreatitis associated with this and it is not possible to tell from the CT scan if there is a mass involved. An NG tube was placed and more than 3 L of putrid fluid is removed from the stomach with improvement in the patient's level of discomfort. He is significantly dehydrated and intravenous saline is begun as well. He has hypokalemia and a K rider is begun as well. Dr. Israel Lares the surgeon here is consulted in the case recommends transfer the patient to the [facility] for this complicated obstruction. Dr. Canales the triage doctor for [place] has authorized the transfer. Dr. Houston the surgeon telephonic nurse case manager at has accepted the patient in transfer. The transfer center has called back with a delay in transfer needed secondary to excessive boarding. They anticipate a bed opening by morning and will call if a bed becomes available earlier. At shift change I have turned care over to Bahman anticipating an admission here overnight and transfer in am. - Sepsis Event Vital Signs: Vital Signs - 24 hr 10/10/17 10/10/17 10/10/17 10:31 12:46 14:36 Temperature 36.3 C L Heart Rate 82 70 68 Respiratory 18 18 18 Rate Blood Pressure 120/77 141/81 H 142/83 H O2 Saturation 95 98 94 10/10/17 15:30 Temperature Heart Rate 70 Respiratory 18 Rate Blood Pressure 136/82 H O2 Saturation 97 Oxygen O2 Source Room air Departure - Departure Disposition: 02 Transfer Acute Care Hosp Clinical Impression: Duodenal obstruction, Hypokalemia Pancreatitis, acute Qualifiers: Pancreatitis type: unspecified pancreatitis type Acute pancreatitis complication: unspecified Qualified Code(s): K85.90 - Acute pancreatitis without necrosis or infection, unspecified
[2017-10-10] MEDS ORDERED: SODIUM CHLORIDE 0.9% 1,000 ML IV ONE ×2 (12:09→18:57)
[2017-10-10] MEDS ORDERED: IOPAMIDOL-300 100 ML VIAL ONE (12:24)
--- NOTE | 2017-10-10 13:35 | CT Report ---
Procedure Date: 10/10/2017 Accession Number: [id number] / [id number] Procedure: CT - Abdomen/Pelvis W/ CPT Code: FULL RESULT: EXAM: CT ABDOMEN AND PELVIS EXAM DATE: 10/10/2017 12:44 PM. CLINICAL HISTORY: Bowel obstruction/pancreatitis, history of gallbladder carcinoma. COMPARISONS: 06/01/2017, 01/03/2017, 08/05/2013. TECHNIQUE: Routine helical CT imaging was performed through the abdomen and pelvis. IV contrast: ISOVUE 300 100mL. Enteric contrast: No. Reconstructions: Coronal and sagittal. In accordance with CT protocol optimization, one or more of the following dose reduction techniques were utilized for this exam: automated exposure control, adjustment of mA and/or KV based on patient size, or use of iterative reconstructive technique. FINDINGS: Lung Bases: There is a small left and trace right pleural effusion. There is mild bilateral basilar subsegmental atelectasis, left greater than right. Liver: Normal. No masses. Gallbladder/Bile Ducts: The gallbladder is surgically absent. Pneumobilia is present, similar to prior. No intrahepatic biliary dilatation. The distal common bile duct measures up to 11 mm (series 5 image 27), previously 6 mm. There are multiple surgical clips in the hepatic hilum. Spleen: Normal. Pancreas: The body and tail appear within normal limits. The margins of the uncinate process of the pancreas are indistinct with mild adjacent fat stranding. Adrenal Glands: Normal. Kidneys: No masses or hydronephrosis. There are multiple small bilateral nonobstructing calyceal calculi, as seen on the prior exam. Peritoneal Cavity/Bowel: There is fluid-filled distention of the distal esophagus, stomach, and proximal duodenum. There is an enteric tube with tip in the proximal stomach just beyond the cavoatrial junction. The sidehole is in the distal esophagus. There is a transition point in the transverse portion of the duodenum adjacent to the uncinate process of the pancreas. The distal duodenum and small bowel are decompressed. There is a small amount of formed stool throughout the colon. No free fluid, free air or adenopathy. There is moderate diverticulosis of the descending and sigmoid colon without evidence of acute diverticulitis. The appendix is not well visualized, but there is no inflammatory change or fluid adjacent to the cecum to suggest acute appendicitis. Pelvic Organs: Normal. The bladder and visualized pelvic organs are within normal limits. Vasculature: There is extensive atherosclerotic calcification of the abdominal aorta. No aneurysm. Bones: There is a lobular lucent lesion within the superior portion of the L5 vertebral body contiguous with the superior endplate. The margins appear well-defined and sclerotic. The lesion is increased in size compared to 06/01/2017. No other bone lesion identified. There is moderate degenerative change at the L5-S1 level and mild degenerative disk changes at other levels of the lumbar and thoracic spine. No fracture. Other: None. IMPRESSION: 1. High-grade obstruction at the level of the transverse portion of the duodenum adjacent to the uncinate process of the pancreas. Enteric tube tip is in the proximal stomach just beyond the gastroesophageal junction, with sidehole in the distal esophagus. 2. At the site of transition in the transverse portion of the duodenum, the duodenal wall and adjacent uncinate process of the pancreas are indistinct with mild adjacent fat stranding. This may be due to focal acute pancreatitis. However, an infiltrative mass cannot be completely excluded. Further evaluation with pancreatic protocol MRI or CT may be helpful for further evaluation after resolution of the acute process. 3. Pneumobilia, as seen on prior exams, likely related to prior cholecystectomy and biliary surgery. No intrahepatic biliary dilatation. There is mild dilatation of the distal common bile duct, increased compared to prior exam. 4. Multiple nonobstructing calyceal calculi of the bilateral kidneys, as seen on the prior exam. 5. Moderate diverticulosis of the descending and sigmoid colon without evidence of acute diverticulitis. 6. Well-defined lucent lesion of the L5 vertebral body, which has increased in size compared to 06/01/2017. Although this could represent a Schmorl's node, the increase in size raises the possibility of a more aggressive lytic lesion. No other bone lesion identified. RADIA
[2017-10-10] MEDS ORDERED: IOPAMIDOL-300 100 ML VIAL IVP ONE (14:08)
[2017-10-10] MEDS ORDERED: POTASSIUM CHLOR 20 MEQ/100 ML 20 MEQ/100 ML BAG IV ONE (15:05)
[2017-10-10] MEDS ORDERED: LORazepam 2 MG/ML VIAL IVP STA ×2 (15:47→18:04)
[2017-10-10] MEDS: POTASSIUM CHLOR 10 MEQ/100 ML 10 MEQ/100 ML BAG IV SCH ×2 (16:22→17:27)
[2017-10-10] MEDS ORDERED: HYDROmorphone 1 MG/ML CARPUJECT ONE (17:01)
[2017-10-10 19:01] LABS: BILIRUBIN,URINE NEGATIVE (NEGATIVE); GLUCOSE, URINE (UA) NEGATIVE (NEGATIVE); KETONES,URINE (UA) NEGATIVE (NEGATIVE); LEUKOCYTE ESTERASE, URINE NEGATIVE (NEGATIVE); NITRITE,URINE NEGATIVE (NEGATIVE); OCCULT BLOOD,URINE SMALL (NEGATIVE); PH,URINE 5.5 PH (5.0-7.5); PROTEIN,URINE NEGATIVE (NEGATIVE); UROBILINOGEN,URINE 0.2 (NORMAL) E.U./dL (NORMAL)
[2017-10-10 19:07] LABS: CLARITY,URINE CLEAR (CLEAR)
[2017-10-10 19:17] LABS: BACTERIA,URINE None Seen /HPF (None Seen); RBC,URINE 0-5 /HPF (0-5); SQUAMOUS EPITHELIAL CELL,UR NONE SEEN (<= Few)
--- NOTE | 2017-10-11 00:04 | ED Physician Documentation ---
ED Addendum - Addendum Addendum: 10/11/17 00:02 Given IVF in the ED. Resting comfortably. Signed out to Dr. De La Rosa awaiting a bed at [facility].
[2017-10-11] MEDS ORDERED: HYDROmorphone 1 MG/ML CARPUJECT IVP STA ×2 (03:29→04:41)
[2017-10-11 04:20] VITALS: BP 130/87
[2017-10-11] MEDS ORDERED: HYDROmorphone 1 MG/ML CARPUJECT IVP PRN (04:41)
[2017-10-11] MEDS ORDERED: EPINEPHrine ABBOJECT 1 MG/10 ML SYRINGE IVP ONE (05:00)
[2017-10-11] MEDS ORDERED: AMIODARONE 150 MG/3 ML VIAL IV ONE (05:00)
[2017-10-11] MEDS ORDERED: NALOXONE 0.4 MG/ML VIAL ONE ×2 (05:04→05:09)
[2017-10-11] MEDS ORDERED: ROCURONIUM 50 MG/5 ML VIAL IVP ONE (05:22)
[2017-10-11] MEDS ORDERED: SUCCINYLCHOLINE 200 MG/10 ML VIAL ONE ×2 (05:22→06:11)
[2017-10-11] MEDS ORDERED: PROPOFOL 200 MG/20 ML VIAL IVP ONE (05:30)
[2017-10-11 05:33] LABS: EOSINOPHILS % (AUTO) 0.3 %; WHITE BLOOD COUNT 13.6 x10^3/uL (4.8-10.8)
[2017-10-11] MEDS ORDERED: PROPOFOL 1000 MG/100 ML 100 ML IV ONE (05:33)
[2017-10-11 05:41] LABS: BASOPHILS % (AUTO) 0.3 %; HGB - HEMOGLOBIN 13.2 g/dL (14.0-18.0); LYMPHOCYTES % (AUTO) 25.5 %; MEAN PLATELET VOLUME 10.4 fL (7.4-11.4); MONOCYTES % (AUTO) 13.1 %; NEUTROPHILS % (AUTO) 60.8 %; RED BLOOD COUNT 3.96 10^6/uL (4.70-6.10)
[2017-10-11 05:42] LABS: MEAN CORPUSCULAR HEMOGLOBIN 33.3 pg (27.0-31.0); PLT - PLATELET COUNT 132 10^3/uL (130-450); RED CELL DISTRIBUTION WIDTH 14.4 % (12.0-15.0)
[2017-10-11 05:43] LABS: ABNORMAL LYMPHS % (MANUAL) 0 %
[2017-10-11 05:50] LABS: ALBUMIN 3.4 g/dL (3.2-5.5); ALBUMIN/GLOBULIN RATIO 1.2 (1.0-2.2); BILIRUBIN,TOTAL 1.2 mg/dL (0.2-1.0); CALCIUM 7.5 mg/dL (8.5-10.3); CREATININE 2.1 mg/dL (0.6-1.2); MAGNESIUM 2.4 mg/dL (1.7-2.8); TOTAL PROTEIN 6.3 g/dL (6.7-8.2)
[2017-10-11 06:15] LABS: BAND NEUTROPHILS % (MANUAL) 1 %; EOSINOPHILS # (MANUAL) 0.1 10^3/uL (0-0.7); LYMPHOCYTES # (MANUAL) 3.5 10^3/uL (1.5-3.5); LYMPHOCYTES % (MANUAL) 26 %; MONOCYTES # (MANUAL) 0.8 10^3/uL (0.0-1.0); NEUTROPHILS # (MANUAL) 9.1 10^3/uL (1.5-6.6); NEUTROPHILS % (MANUAL) 66 %; PLATELET ESTIMATE, MANUAL NORMAL (130-450,000) (NORMAL); RBC MORPHOLOGY (MULTIPLE) NORMAL APPEARANCE (NORMAL)
[2017-10-11 06:16] LABS: DIFFERENTIAL COMMENT MANUAL DIFFERENTIAL
--- NOTE | 2017-10-11 06:34 | ED Physician Documentation ---
ED Addendum - Addendum Addendum: 10/11/17 06:35 early in the morning, sometime around 530 am patient got up to urinate, right when he was finished urinating patient became unresponsive. Patient lost his pulses and cpr as started. patient was treated with narcan 0.4mg with no response. patient was treated with epinephrine. cpr was started again. patient had no response to the original narcan but was treated with another dose with no response. second round of epinephrine was given. At repeat pulse check patient had pulses but went into v tach. patient was shocked at 200j and came back into a sinus rhythm. Patient was sinus tach for a little while but went back into vtach and was shocked again. patient was treated with amio 150mg. fluid bolus was going. Patient's pulse remained palpable and patient was started on a levophed. Patient was intubated after a second attempt using sucs and propofol. Patient's et tube was confirmed. Case was discussed with transfer center and Dr. Dean who agreed to transfer. [facility] was contacted and arrangements were made. Patient was transferred in critical condition. Critical Care Note - Critical Care Note Total Time (mins): 45 (not including intubation) INTUBATION - Intubation Provider: positive: Emergency physician Medications: positive: Propofol, Succinylcholine Blade: positive: Floresita, Glidescope Tube: positive: Size-enter number (7,5), Cuffed Confirmation: positive: Direct visualization, Bilateral breath sounds, No abdominal breath sound, Chest xray Complications: positive: Desaturated Departure - Departure Disposition: 02 Transfer Acute Care Hosp Discharge Problem: Duodenal obstruction, Hypokalemia, Cardiac arrest Pancreatitis, acute Qualifiers: Pancreatitis type: unspecified pancreatitis type Acute pancreatitis complication: unspecified Qualified Code(s): K85.90 - Acute pancreatitis without necrosis or infection, unspecified Condition: Critical Home Medications: Ambulatory Orders Hyluronic Acid 100 mg ORAL DAILY 10/10/17 Sodium Chloride [Salt Tab] 1 gm PO DAILY 10/10/17
--- NOTE | 2017-10-11 06:46 | XRAY Report ---
Procedure Date: 10/11/2017 Accession Number: [id number] / [id number] Procedure: XR - Chest 1 View X-Ray CPT Code: 65334 FULL RESULT: EXAM: CHEST RADIOGRAPHY EXAM DATE: 10/11/2017 06:10 AM. CLINICAL HISTORY: Tube placement. COMPARISON: CHEST 2 VIEW PA/LAT 02/17/2016. TECHNIQUE: 1 view. FINDINGS: Lungs/Pleura: Mild perihilar opacities. Costophrenic angles are not completely included. No definite pleural effusion. No pneumothorax identified. Mediastinum: Within exam limitations, the cardiomediastinal contour is normal. Other: Endotracheal tube is in place with the tip 4.3 cm above the siva. Enteric tube extends beyond the gastroesophageal junction. Right-sided PowerPort with the tip in the lower SVC. IMPRESSION: 1. Mild perihilar opacities. 2. ETT 4.3 cm above the siva. Enteric tube extends beyond the gastroesophageal junction. 3. Right-sided PowerPort. RADIA
== END 2017-10-11 07:25 | disposition short-term general hospital (02) ==
LOC: ED 10:20
DX: K31.5 Obstruction of duodenum (principal); E87.6 Hypokalemia; K85.90 Acute pancreatitis without necrosis or infection, unspecified; I46.9 Cardiac arrest, cause unspecified; C22.1 Intrahepatic bile duct carcinoma; E86.0 Dehydration; G90.3 Multi-system degeneration of the autonomic nervous system; Z79.82 Long term (current) use of aspirin; Z92.21 Personal history of antineoplastic chemotherapy
CPT/HCPCS: 36415; 71045; 74177; 80053; 81001; 83605; 83690; 83735; 84100; 84484; 85025; 93005; 96361; 96365; 96366; 96375; 96376; 99291; J0282; J0330; J1170; J2060; Q9967; 81003; 87086; 99285